=== PATIENT | female | born 1955 | race Caucasian/White ===

== ENCOUNTER 2016-10-18 17:13 | Emergency (ER) | payer SELFPAY ==
[~2016-10-18] VITALS: Ht 165.1 cm; Wt 61.2 kg
[~2016-10-18 17:13] MED LIST: AMOXIL500 MG PO; MOTRIN800 MG PO
[2016-10-18 17:21] VITALS: BP 127/92
[2016-10-18] MEDS ORDERED: TRAZADONE HYDR100 MG PO (17:22)
[2016-10-18 17:39] LABS: BASO % 0.5 % (0.0-1.0); EOS # 0.1 10*3/uL (0.0-0.4); EOS % 1.1 % (1.0-4.0); HEMATOCRIT 36.2 % (37.0-47.0); HEMOGLOBIN 11.8 g/dl (12.0-16.0); LYMPH % 35.4 % (27.0-41.0); MEAN CELL VOLUME 88.1 fl (81.0-99.0); MEAN CORPUSCULAR HGB 28.7 pg (27.0-31.0); MEAN CORPUSCULAR HGB CONC 32.6 g/dl (33.0-37.0); MEAN PLATELET VOLUME 10.5 fl (9.6-12.3); MONO # 0.6 10*3/uL (0.1-1.0); MONO % 7.3 % (3.0-9.0); NEUT # 4.7 10*3/uL (2.3-7.9); NEUT % 55.6 % (47.0-73.0); PLATELET COUNT AUTOMATED 244 10*3/uL (130-400); RED BLOOD COUNT 4.11 10*6/uL (4.10-5.10); RED CELL DISTRI WIDTH 13.5 % (0-14.5); WHITE BLOOD COUNT 8.5 10*3/uL (4.8-10.8)
[2016-10-18 17:50] LABS: PROTHROMBIN TIME 10.3 SECONDS (9.0-12.4)
[2016-10-18 17:56] LABS: ALBUMIN 3.9 gm/dl (3.1-4.5); ALKALINE PHOSPHATASE 92 U/L (45-117); BILIRUBIN, TOTAL 0.3 mg/dl (0.2-1.0); BUN 13 mg/dl (7-24); CARBON DIOXIDE 24 mmol/L (21-32); CHLORIDE 104 mmol/L (98-107); EST GLOM FILT AFRICAN AMERICAN > 60 ml/min; GLUCOSE 84 mg/dL (65-99); POTASSIUM 3.6 mmol/L (3.5-5.1); SGOT/AST 14 IU/L (3-35); SGPT/ALT 27 U/L (12-78); SODIUM 135 mmol/L (136-145)
[2016-10-18 18:00] LABS: TROPONIN I < 0.015 ng/ml (<0.045)
[2016-10-18 18:03] VITALS: BP 136/99
[2016-10-18 18:24] VITALS: BP 137/97
[2016-10-18 18:43] VITALS: BP 122/90
== END 2016-10-18 19:03 | disposition left against medical advice (07) ==
LOC: ED 17:13 → EDHOLD 18:28 → ED 19:03 → EDHOLD 19:04 → ED 19:04
PROVIDERS: Emergency Medicine
DX: R07.89 Other chest pain (principal); R06.02 Shortness of breath; H53.8 Other visual disturbances; R42 Dizziness and giddiness; J45.901 Unspecified asthma with (acute) exacerbation; Z88.8 Allergy status to other drugs, medicaments and biological substances

== ENCOUNTER 2017-01-02 17:30 | Inpatient (IN) | payer MEDICAID ==
[2017-01-02] VITALS (8 sets, daily range): BP systolic 121–144; BP diastolic 76–96
[~2017-01-02] VITALS: Ht 165.1 cm; Wt 61.4 kg
--- NOTE | ~2017-01-02 | CON ---
[place], [place] REPORT OF CONSULTATION NAME: SUMMER REBOLLEDO UNIT #: [id number] ROOM: 525 DOCTOR: ENIO DANGELO MD BIRTHDATE: [birth year] DOS: 01/05/2017 CHIEF COMPLAINT: "I am just so depressed and so anxious." HISTORY OF PRESENT ILLNESS: This is a 61-year-old white female with a past history of breast cancer and fibromyalgia, presenting to [facility] with chest pain and shortness of breath. From a psychiatric standpoint, the patient endorses significant depression that is ongoing, made worse by her father's recent . The patient also reports having significant anxiety issues that is somewhat related to her chest pain and shortness of breath, but also tends to describe herself as a worrier that worries about everything that is happening around her. The patient has significant fibromyalgia. She rates her pain on a scale of 1-10 as a 10 with 10 being the worst pain ever. She endorses poor sleep with difficulty falling asleep, sleep continuity disturbance, hand grinder awakening, anergia, anhedonia, hopeless, helpless feelings, crying spells and inability to cope. She does not have a history of seeing a counselor in the past nor has she seen a psychiatrist. PAST MEDICAL HISTORY: Remarkable for SIRS, tachycardia, acute respiratory failure, history of fibromyalgia and breast cancer. MENTAL STATUS: The patient is alert and oriented to person, place and time. Mood is overwhelmingly depressed. Affect is flat and blunted with constricted range. She endorses both depression and anxiety. There is no hypomania or arnaldo. There are no overt auditory or visual hallucinations. No delusions, no paranoia. Memory for short, intermediate and long-term events is fully intact. DIAGNOSIS: Major depression, recurrent and anxiety disorder, not otherwise specified. PLAN: The patient reports having already tried Cymbalta and Neurontin for the fibromyalgia and for the depression, neither of which worked. I will go ahead and start her on Elavil 50 mg at bedtime while maintaining her trazodone 400 mg at bedtime. Ultimately, the patient should follow up in the office post-discharge. Should she have further continued problems, feel free to reconsult me and I will reevaluate her later. ENIO DANGELO MD CM:CONSTR:REPORT OF CONSULTATION 6 01/05/17 [id number] interface
[~2017-01-02 17:30] MED LIST changes: +TRAZADONE HYDR100 MG PO
[2017-01-02 17:52] LABS: BASO % 0.3 % (0.0-1.0); EOS # 0.1 10*3/uL (0.0-0.4); EOS % 0.4 % (1.0-4.0); HEMOGLOBIN 11.8 g/dl (12.0-16.0); LYMPH # 2.4 10*3/uL (1.3-4.4); LYMPH % 20.3 % (27.0-41.0); MEAN CELL VOLUME 83.3 fl (81.0-99.0); MEAN CORPUSCULAR HGB 28.1 pg (27.0-31.0); MEAN CORPUSCULAR HGB CONC 33.7 g/dl (33.0-37.0); MEAN PLATELET VOLUME 10.4 fl (9.6-12.3); MONO # 0.8 10*3/uL (0.1-1.0); MONO % 6.4 % (3.0-9.0); NEUT # 8.6 10*3/uL (2.3-7.9); NEUT % 72.3 % (47.0-73.0); PLATELET COUNT AUTOMATED 222 10*3/uL (130-400); RED CELL DISTRI WIDTH 13.5 % (0-14.5); WHITE BLOOD COUNT 11.9 10*3/uL (4.8-10.8)
[2017-01-02 18:02] LABS: PROTHROMBIN TIME 10.4 SECONDS (9.0-12.4)
[2017-01-02 18:08] LABS: ALBUMIN 3.8 gm/dl (3.1-4.5); ALKALINE PHOSPHATASE 98 U/L (45-117); BILIRUBIN, TOTAL 0.4 mg/dl (0.2-1.0); BUN 17 mg/dl (7-24); CARBON DIOXIDE 15 mmol/L (21-32); CHLORIDE 108 mmol/L (98-107); EST GLOM FILT AFRICAN AMERICAN > 60 ml/min; GLUCOSE 119 mg/dL (65-99); MAGNESIUM 1.8 mg/dL (1.5-2.1); POTASSIUM 3.2 mmol/L (3.5-5.1); SGOT/AST 13 IU/L (3-35); SGPT/ALT 25 U/L (12-78); SODIUM 139 mmol/L (136-145); TOTAL PROTEIN 7.7 gm/dL (6.4-8.2)
[2017-01-02 18:09] LABS: TROPONIN I < 0.015 ng/ml (<0.045)
[2017-01-02 21:48] LABS: BILIRUBIN NEGATIVE (NEGATIVE); BLOOD NEGATIVE (NEGATIVE); CLARITY CLEAR (CLEAR); COLOR YELLOW (YELLOW); GLUCOSE NEGATIVE (NEGATIVE); KETONE 2+ (NEGATIVE); LEUKO ESTERASE NEGATIVE (NEGATIVE); NITRITE NEGATIVE (NEGATIVE); PROTEIN NEGATIVE (NEGATIVE); UROBILINOGEN 0.2 E.U./dl (0.2-1.0)
[2017-01-02 21:56] LABS: BACTERIA 2+; RBC 0-2 rbc/hpf (0-2); URINE REFLEX COMMENT YES (NO)
[2017-01-03] VITALS: BP 99/55
[2017-01-03 06:08] LABS: MONO % 5.4 % (3.0-9.0); RED CELL DISTRI WIDTH 14.1 % (0-14.5)
[2017-01-03 06:15] LABS: PROTHROMBIN TIME 10.7 SECONDS (9.0-12.4)
[2017-01-03 06:22] LABS: HEMOGLOBIN A1c 5.9 % (4.8-5.6)
[2017-01-03 06:31] LABS: BASO % 0.4 % (0.0-1.0); EOS # 0.1 10*3/uL (0.0-0.4); EOS % 0.8 % (1.0-4.0); HEMATOCRIT 30.6 % (37.0-47.0); HEMOGLOBIN 9.8 g/dl (12.0-16.0); LYMPH # 1.8 10*3/uL (1.3-4.4); LYMPH % 20.2 % (27.0-41.0); MEAN CORPUSCULAR HGB 28.7 pg (27.0-31.0); MONO # 0.5 10*3/uL (0.1-1.0); NEUT # 6.6 10*3/uL (2.3-7.9); PLATELET COUNT AUTOMATED 192 10*3/uL (130-400); RED BLOOD COUNT 3.41 10*6/uL (4.10-5.10)
[2017-01-03 06:34] LABS: MEAN CELL VOLUME 89.7 fl (81.0-99.0)
[2017-01-03 06:41] LABS: BUN 9 mg/dl (7-24); CARBON DIOXIDE 20 mmol/L (21-32); CHLORIDE 111 mmol/L (98-107); CHOLESTEROL 130 mg/dL (<200); EST GLOM FILT AFRICAN AMERICAN > 60 ml/min; FREE T4 1.18 ng/dl (0.76-1.46); GLUCOSE 125 mg/dL (65-99); HDL CHOLESTEROL 54 mg/dl (40-60); LDL CHOLESTEROL 63 mg/dL (9-159); MAGNESIUM 1.9 mg/dL (1.5-2.1); PHOSPHOROUS 3.7 mg/dL (2.5-4.9); SODIUM 140 mmol/L (136-145); TRIGLYCERIDES 64 mg/dl (<150); VLDL CHOLESTEROL 13 mg/dL (6-40)
[2017-01-03 06:55] LABS: POTASSIUM 4.2 mmol/L (3.5-5.1)
[2017-01-03 07:12] LABS: VITAMIN D, 25-HYDROXY 39.2 ng/mL (30-100)
[2017-01-03 07:13] LABS: FOLIC ACID 12.34 ng/mL (>5.38)
[2017-01-03 08:00] VITALS: BP 98/50
[2017-01-03 12:00] VITALS: BP 99/59
[2017-01-03 16:00] VITALS: BP 120/79
[2017-01-03 17:56] LABS: URINE AMPHETAMINES < 1000 (1000ng/ml); URINE BARBITURATES < 200 (200ng/ml); URINE COCAINE < 300 (300ng/ml)
[2017-01-03 20:00] VITALS: BP 125/77
[2017-01-04] VITALS: BP 99/59
[2017-01-04 07:27] LABS: BASO % 0.6 % (0.0-1.0); EOS # 0.2 10*3/uL (0.0-0.4); EOS % 4.6 % (1.0-4.0); HEMATOCRIT 33.7 % (37.0-47.0); HEMOGLOBIN 10.5 g/dl (12.0-16.0); LYMPH # 1.5 10*3/uL (1.3-4.4); LYMPH % 31.7 % (27.0-41.0); MEAN CELL VOLUME 91.8 fl (81.0-99.0); MEAN CORPUSCULAR HGB 28.6 pg (27.0-31.0); MEAN CORPUSCULAR HGB CONC 31.2 g/dl (33.0-37.0); MEAN PLATELET VOLUME 11.1 fl (9.6-12.3); MONO # 0.4 10*3/uL (0.1-1.0); MONO % 7.9 % (3.0-9.0); NEUT # 2.7 10*3/uL (2.3-7.9); PLATELET COUNT AUTOMATED 169 10*3/uL (130-400); RED BLOOD COUNT 3.67 10*6/uL (4.10-5.10); RED CELL DISTRI WIDTH 14.3 % (0-14.5); WHITE BLOOD COUNT 4.8 10*3/uL (4.8-10.8)
[2017-01-04 07:57] LABS: ALBUMIN 3.2 gm/dl (3.1-4.5); BILIRUBIN, TOTAL 0.3 mg/dl (0.2-1.0); BUN 8 mg/dl (7-24); CARBON DIOXIDE 23 mmol/L (21-32); CHLORIDE 112 mmol/L (98-107); EST GLOM FILT AFRICAN AMERICAN > 60 ml/min; GLUCOSE 87 mg/dL (65-99); POTASSIUM 3.9 mmol/L (3.5-5.1); SGOT/AST 17 IU/L (3-35); SGPT/ALT 20 U/L (12-78); SODIUM 144 mmol/L (136-145)
[2017-01-04 07:58] LABS: ALKALINE PHOSPHATASE 78 U/L (45-117)
[2017-01-04 08:00] VITALS: BP 92/71
[2017-01-04 16:00] VITALS: BP 135/80
[2017-01-04 20:00] VITALS: BP 130/75
[2017-01-05] VITALS: BP 135/75
[2017-01-05 06:52] LABS: BASO % 0.3 % (0.0-1.0); EOS # 0.2 10*3/uL (0.0-0.4); EOS % 3.3 % (1.0-4.0); HEMATOCRIT 30.6 % (37.0-47.0); HEMOGLOBIN 9.3 g/dl (12.0-16.0); LYMPH # 1.7 10*3/uL (1.3-4.4); LYMPH % 29.4 % (27.0-41.0); MEAN CELL VOLUME 92.7 fl (81.0-99.0); MEAN CORPUSCULAR HGB 28.2 pg (27.0-31.0); MEAN CORPUSCULAR HGB CONC 30.4 g/dl (33.0-37.0); MEAN PLATELET VOLUME 10.6 fl (9.6-12.3); MONO # 0.6 10*3/uL (0.1-1.0); MONO % 9.5 % (3.0-9.0); NEUT # 3.3 10*3/uL (2.3-7.9); NEUT % 57.3 % (47.0-73.0); PLATELET COUNT AUTOMATED 171 10*3/uL (130-400); RED CELL DISTRI WIDTH 14.1 % (0-14.5); WHITE BLOOD COUNT 5.8 10*3/uL (4.8-10.8)
[2017-01-05 07:28] LABS: ALBUMIN 2.7 gm/dl (3.1-4.5); BILIRUBIN, TOTAL 0.2 mg/dl (0.2-1.0); BUN 12 mg/dl (7-24); CARBON DIOXIDE 24 mmol/L (21-32); CHLORIDE 113 mmol/L (98-107); EST GLOM FILT AFRICAN AMERICAN > 60 ml/min; GLUCOSE 98 mg/dL (65-99); SGOT/AST 15 IU/L (3-35); SGPT/ALT 18 U/L (12-78); SODIUM 143 mmol/L (136-145)
[2017-01-05 07:29] LABS: ALKALINE PHOSPHATASE 66 U/L (45-117)
[2017-01-05 08:00] VITALS: BP 124/78
[2017-01-05 12:00] VITALS: BP 136/96
[2017-01-05 16:00] VITALS: BP 129/78
[2017-01-05 20:00] VITALS: BP 108/68
[2017-01-06] VITALS: BP 117/82
[2017-01-06 08:00] VITALS: BP 128/89
[2017-01-06 12:00] VITALS: BP 103/66
[2017-01-06] MEDS ORDERED: AMITRIPTYLINE50 MG PO (12:31)
== END 2017-01-06 13:23 | disposition home or self-care (01) | DRG 871 ==
LOC: ED 17:30 → 5E 21:52 → EDHOLD 21:52 → 5E 22:04
PROVIDERS: Emergency Medicine; Family Medicine; Hospitalist; Physician Assistant
PROC: 4A12XM4 Monitoring of Cardiac Stress, External Approach (ICD-10-PCS; principal; 2017-01-04)
PROC: 3E073KZ Introduction of Other Diagnostic Substance into Coronary Artery, Percutaneous Approach (ICD-10-PCS; 2017-01-04)
DX: A41.9 Sepsis, unspecified organism (principal); J96.00 Acute respiratory failure, unspecified whether with hypoxia or hypercapnia; E43 Unspecified severe protein-calorie malnutrition; F33.9 Major depressive disorder, recurrent, unspecified; E87.6 Hypokalemia; M79.7 Fibromyalgia; R73.9 Hyperglycemia, unspecified; R82.4 Acetonuria; E83.51 Hypocalcemia; K59.00 Constipation, unspecified; F41.9 Anxiety disorder, unspecified; D64.9 Anemia, unspecified; Z79.899 Other long term (current) drug therapy; Z83.3 Family history of diabetes mellitus; Z90.10 Acquired absence of unspecified breast and nipple; Z85.3 Personal history of malignant neoplasm of breast; Z92.21 Personal history of antineoplastic chemotherapy; Z92.3 Personal history of irradiation; Z80.1 Family history of malignant neoplasm of trachea, bronchus and lung; Z82.49 Family history of ischemic heart disease and other diseases of the circulatory system; Z68.22 Body mass index [BMI] 22.0-22.9, adult

== ENCOUNTER → 2017-02-05 | Outpatient (CLI) | payer OTHER ==
[~2017-02-05] MED LIST changes: +AMITRIPTYLINE50 MG PO
== END | disposition home or self-care (01) ==
LOC: MRI 11:00
DX: H53.8 Other visual disturbances (principal); H57.02 Anisocoria; R42 Dizziness and giddiness; R29.6 Repeated falls; R41.3 Other amnesia; Z85.3 Personal history of malignant neoplasm of breast

== ENCOUNTER → 2017-03-01 | Outpatient (CLI) | payer OTHER ==
[2017-03-01 09:17] LABS: CREATININE 0.95 mg/dL (0.55-1.02)
== END | disposition home or self-care (01) ==
LOC: MRI 02-27 11:00 → CT 02-27 11:00 → MRI 08:31 → LAB 08:31 → MRI 09:00
PROVIDERS: Radiology Diagnostic Radiology
DX: M47.892 Other spondylosis, cervical region (principal); R22.9 Localized swelling, mass and lump, unspecified; R51 Headache; M54.2 Cervicalgia; R29.6 Repeated falls

== ENCOUNTER → 2017-03-16 | Outpatient (CLI) | payer OTHER ==
[2017-03-16 16:38] LABS: HEMATOCRIT 40.4 % (37.0-47.0); MEAN CELL VOLUME 89.4 fl (81.0-99.0); MEAN CORPUSCULAR HGB 28.8 pg (27.0-31.0); MEAN CORPUSCULAR HGB CONC 32.2 g/dl (33.0-37.0); MEAN PLATELET VOLUME 10.3 fl (9.6-12.3); RED BLOOD COUNT 4.52 10*6/uL (4.10-5.10); WHITE BLOOD COUNT 9.4 10*3/uL (4.8-10.8)
[2017-03-16 16:58] LABS: CREATININE 1.24 mg/dL (0.55-1.02); POTASSIUM 3.9 mmol/L (3.5-5.1); TOTAL PROTEIN 8.2 gm/dL (6.4-8.2)
[2017-03-16 17:05] LABS: THYROID STIM HORMONE (HS) 1.18 uIU/ml (0.358-4.75)
[2017-03-16 17:56] LABS: FERRITIN 22.5 ng/mL (10.0-291.0)
[2017-03-19 16:12] LABS: STRIATIONAL ANTIBODIES 160184 Negative (Neg:<1:40)
[2017-03-20 18:05] LABS: ACHR-BINDING AB 085902 0.04 nmol/L (0.00-0.24)
[2017-03-21 11:04] LABS: ACHR MODULATING AB 085933 <12 % (0-20)
[2017-03-22 12:08] LABS: ACHR BLOCKING AB 085926 14 % (0-25)
== END | disposition home or self-care (01) ==
LOC: LAB 15:58 → US 16:00
DX: N13.30 Unspecified hydronephrosis (principal); N32.89 Other specified disorders of bladder; R41.3 Other amnesia; R53.1 Weakness; F80.81 Childhood onset fluency disorder; H53.8 Other visual disturbances

== ENCOUNTER → 2017-05-31 | Outpatient (CLI) | payer OTHER | END | disposition home or self-care (01) | LOC: CP 11:44 | DX: R29.6 Repeated falls (principal); F80.81 Childhood onset fluency disorder; H53.8 Other visual disturbances; G44.209 Tension-type headache, unspecified, not intractable; D18.1 Lymphangioma, any site ==

== ENCOUNTER → 2017-06-26 | Outpatient (CLI) | payer OTHER ==
[2017-06-26 13:14] LABS: CREATININE 0.83 mg/dL (0.55-1.02)
[2017-06-26 13:19] LABS: BUN 16 mg/dl (7-24); CPK 58 U/L (26-192)
[2017-06-28 16:11] LABS: ACHR-BINDING AB 085902 0.19 nmol/L (0.00-0.24)
== END | disposition home or self-care (01) ==
LOC: LAB 12:32 → MRI 13:00
PROVIDERS: Psychiatry & Neurology Neurology; Radiology Diagnostic Radiology
DX: Z13.89 Encounter for screening for other disorder (principal); R29.6 Repeated falls; R53.1 Weakness; F80.81 Childhood onset fluency disorder; H53.8 Other visual disturbances; H53.2 Diplopia; D18.1 Lymphangioma, any site; G44.89 Other headache syndrome; E87.8 Other disorders of electrolyte and fluid balance, not elsewhere classified; Z85.3 Personal history of malignant neoplasm of breast

== ENCOUNTER 2019-07-31 18:59 | Emergency (ER) | payer OTHER ==
[~2019-07-31] VITALS: Ht 165.1 cm; Wt 56.7 kg
[2019-07-31 19:10] VITALS: BP 153/85
[2019-07-31] MEDS ORDERED: PROAIR HFA8.5 GM INH (20:03)
[2019-07-31] MEDS ORDERED: PREDNISONE50 MG PO (20:03)
[2019-07-31] MEDS ORDERED: AMOXICILLIN500 M2 PO (20:03)
== END 2019-07-31 20:15 | disposition home or self-care (01) ==
LOC: ED 18:59
DX: J20.9 Acute bronchitis, unspecified (principal); J45.909 Unspecified asthma, uncomplicated; M79.7 Fibromyalgia

== ENCOUNTER 2020-05-14 14:02 | Emergency (ER) | payer OTHER ==
[~2020-05-14] VITALS: Ht 162.5 cm; Wt 61.2 kg
[~2020-05-14 14:02] MED LIST changes: +AMOXICILLIN500 M2 PO; +PREDNISONE50 MG PO; +PROAIR HFA8.5 GM INH
[2020-05-14 14:05] VITALS: BP 136/58
[2020-05-14 14:21] LABS: BASO % 0.6 % (0.0-1.0); EOS # 0.4 10*3/uL (0.0-0.4); EOS % 5.9 % (1.0-4.0); HEMATOCRIT 38.8 % (37.0-47.0); LYMPH % 30.3 % (27.0-41.0); MEAN CELL VOLUME 90.2 fl (81.0-99.0); MEAN CORPUSCULAR HGB 28.1 pg (27.0-31.0); MEAN CORPUSCULAR HGB CONC 31.2 g/dl (33.0-37.0); MEAN PLATELET VOLUME 10.6 fl (9.6-12.3); MONO # 0.6 10*3/uL (0.1-1.0); MONO % 8.8 % (3.0-9.0); NEUT # 3.5 10*3/uL (2.3-7.9); NEUT % 54.1 % (47.0-73.0); PLATELET COUNT AUTOMATED 239 10*3/uL (130-400); RED CELL DISTRI WIDTH 13.2 % (0-14.5); WHITE BLOOD COUNT 6.5 10*3/uL (4.8-10.8)
[2020-05-14 14:33] LABS: ACT PARTIAL THROMBO TIME 25.4 SECONDS (20.0-32.1); INTERNATIONAL NORM RATIO 0.9 (2.0-3.5)
[2020-05-14 14:37] LABS: ALBUMIN 3.6 gm/dl (3.1-4.5); ALKALINE PHOSPHATASE 114 U/L (45-117); BUN 12 mg/dl (7-24); CHLORIDE 109 mmol/L (98-107); CREATININE 0.69 mg/dL (0.55-1.02); POTASSIUM 3.5 mmol/L (3.5-5.1); SGOT/AST 28 IU/L (3-35); SGPT/ALT 47 U/L (12-78); SODIUM 142 mmol/L (136-145); TOTAL PROTEIN 7.7 gm/dL (6.4-8.2); TROPONIN I < 0.015 ng/ml (<0.045)
== END 2020-05-14 16:58 | disposition home or self-care (01) ==
LOC: ED 14:02
PROVIDERS: Emergency Medicine
DX: R00.2 Palpitations (principal); Z79.899 Other long term (current) drug therapy

== ENCOUNTER → 2022-02-23 | Day surgery (SDC) | payer OTHER ==
[~2022-02-23] VITALS: Ht 162.5 cm; Wt 61.2 kg
[~2022-02-23] MED LIST changes: +PERCOCET 5-3251 EACH PO; -TRAZADONE HYDR100 MG PO; +TRAZODONE HYDR300 MG PO
[2022-02-23 08:27] VITALS: BP 118/82
[2022-02-23 09:34] VITALS: BP 129/87
[2022-02-23 09:49] VITALS: BP 112/61
[2022-02-23 10:00] VITALS: BP 118/71
[2022-02-23 10:19] VITALS: BP 111/66
[2022-02-23 10:34] VITALS: BP 119/67
== END | disposition home or self-care (01) ==
LOC: SDC 02-21 12:30
PROVIDERS: ATTEND Surgery
DX: Z12.11 Encounter for screening for malignant neoplasm of colon (principal); T82.594A Other mechanical complication of infusion catheter, initial encounter; J45.909 Unspecified asthma, uncomplicated; F32.9 Major depressive disorder, single episode, unspecified; F41.9 Anxiety disorder, unspecified; M79.7 Fibromyalgia; I48.91 Unspecified atrial fibrillation; Z85.3 Personal history of malignant neoplasm of breast; Y82.8 Other medical devices associated with adverse incidents; G43.909 Migraine, unspecified, not intractable, without status migrainosus; Z98.890 Other specified postprocedural states

== ENCOUNTER → 2022-03-30 | Outpatient (CLI) | payer OTHER | END | disposition home or self-care (01) | LOC: CT 07:47 | PROVIDERS: ATTEND Physician Assistant | DX: R91.8 Other nonspecific abnormal finding of lung field (principal) ==

== ENCOUNTER → 2022-04-12 | Outpatient (CLI) | payer OTHER | LOC: LAB 11:04 | PROVIDERS: ATTEND Internal Medicine | DX: R07.9 Chest pain, unspecified (principal) ==

== ENCOUNTER 2023-05-09 22:12 | Emergency (ER) | payer OTHER ==
[2023-05-09 22:37] LABS: BASO % 0.3 % (0.0-1.0); EOS # 0.1 10*3/uL (0.0-0.4); EOS % 0.9 % (1.0-4.0); HEMATOCRIT 34.4 % (37.0-47.0); LYMPH # 1.7 10*3/uL (1.3-4.4); MEAN CELL VOLUME 90.1 fl (81.0-99.0); MEAN CORPUSCULAR HGB 30.1 pg (27.0-31.0); MEAN CORPUSCULAR HGB CONC 33.4 g/dl (33.0-37.0); MEAN PLATELET VOLUME 10.7 fl (9.6-12.3); MONO # 0.5 10*3/uL (0.1-1.0); MONO % 8.1 % (3.0-9.0); NEUT # 4.3 10*3/uL (2.3-7.9); NEUT % 65.4 % (47.0-73.0); PLATELET COUNT AUTOMATED 167 10*3/uL (130-400); RED BLOOD COUNT 3.82 10*6/uL (4.10-5.10); RED CELL DISTRI WIDTH 13.5 % (0-14.5); WHITE BLOOD COUNT 6.6 10*3/uL (4.8-10.8)
[2023-05-09 23:05] LABS: ALKALINE PHOSPHATASE 71 U/L (46-116); BUN 13 mg/dl (9-23); CHLORIDE 108 mmol/L (98-107); ETHYL ALCOHOL 162.9 mg/dl (<3); POTASSIUM 2.8 mmol/L (3.4-5.1); SGPT/ALT 18 U/L (5-49); TOTAL PROTEIN 6.4 gm/dL (6.0-8.0)
[2023-05-10 06:03] LABS: BASO % 0.4 % (0.0-1.0); EOS % 0.6 % (1.0-4.0); HEMATOCRIT 33.5 % (37.0-47.0); LYMPH % 19.9 % (27.0-41.0); MEAN CELL VOLUME 91.3 fl (81.0-99.0); MEAN CORPUSCULAR HGB 29.7 pg (27.0-31.0); MEAN CORPUSCULAR HGB CONC 32.5 g/dl (33.0-37.0); MEAN PLATELET VOLUME 10.7 fl (9.6-12.3); MONO # 0.3 10*3/uL (0.1-1.0); NEUT # 3.6 10*3/uL (2.3-7.9); NEUT % 72.7 % (47.0-73.0); PLATELET COUNT AUTOMATED 151 10*3/uL (130-400); RED BLOOD COUNT 3.67 10*6/uL (4.10-5.10); RED CELL DISTRI WIDTH 13.5 % (0-14.5)
[2023-05-10 06:16] LABS: BILIRUBIN Negative (Negative); BLOOD Negative (Negative); CLARITY Clear (Clear); COLOR Yellow (Yellow); GLUCOSE Negative (Negative); KETONE 1+ (Negative); LEUKO ESTERASE 2+ (Negative); NITRITE Negative (Negative); PH 6.5 (4.5-8.0); UROBILINOGEN 0.2 E.U./dl (0.0-1.0)
[2023-05-10 06:22] LABS: URINE AMPHETAMINES Negative (1000ng/ml); URINE BARBITURATES Negative (200ng/ml); URINE BENZODIAZEPINES Negative (200ng/ml); URINE CANNABINOIDS (THC) Negative (50ng/ml); URINE COCAINE Negative (300ng/ml); URINE METHADONE Negative (300ng/ml); URINE OPIATES Negative (300ng/ml); URINE PHENCYCLIDINE Negative (25ng/ml)
[2023-05-10 06:25] LABS: BUN 8 mg/dl (9-23); CHLORIDE 109 mmol/L (98-107); ETHYL ALCOHOL 6.9 mg/dl (<3); POTASSIUM 3.2 mmol/L (3.4-5.1)
[2023-05-10 06:39] LABS: BACTERIA 2+; WBC 31-40 wbc/hpf (0-5)
[2023-05-10 14:27] VITALS: BP 108/62
[2023-05-10 14:44] LABS: CHLORIDE 111 mmol/L (98-107)
[2023-05-10 14:46] LABS: BUN < 5 mg/dl (9-23); POTASSIUM 4.2 mmol/L (3.4-5.1)
== END 2023-05-10 17:44 ==
LOC: ED 22:12
PROVIDERS: Internal Medicine
DX: T43.212A Poisoning by selective serotonin and norepinephrine reuptake inhibitors, intentional self-harm, initial encounter (principal); Z20.822 Contact with and (suspected) exposure to COVID-19; F43.21 Adjustment disorder with depressed mood; R11.10 Vomiting, unspecified; F10.920 Alcohol use, unspecified with intoxication, uncomplicated; E87.6 Hypokalemia; D64.9 Anemia, unspecified; Z79.899 Other long term (current) drug therapy; Y92.89 Other specified places as the place of occurrence of the external cause

== ENCOUNTER 2024-12-10 12:41 | Emergency (ER) | payer OTHER ==
[~2024-12-10] VITALS: Ht 162.5 cm; Wt 56.7 kg
[2024-12-10 12:56] VITALS: BP 101/59
[2024-12-10 13:01] LABS: BASO % 0.3 % (0.0-1.0); EOS # 0.1 10*3/uL (0.0-0.4); EOS % 0.4 % (1.0-4.0); HEMATOCRIT 30.5 % (37.0-47.0); MEAN CELL VOLUME 88.9 fl (81.0-99.0); MEAN CORPUSCULAR HGB 28.3 pg (27.0-31.0); MEAN CORPUSCULAR HGB CONC 31.8 g/dl (33.0-37.0); MEAN PLATELET VOLUME 9.6 fl (9.6-12.3); MONO # 0.5 10*3/uL (0.1-1.0); MONO % 4.6 % (3.0-9.0); NEUT # 7.9 10*3/uL (2.3-7.9); NEUT % 69.2 % (47.0-73.0); PLATELET COUNT AUTOMATED 358 10*3/uL (130-400); RED BLOOD COUNT 3.43 10*6/uL (4.10-5.10); RED CELL DISTRI WIDTH 14.6 % (0-14.5); WHITE BLOOD COUNT 11.4 10*3/uL (4.8-10.8)
[2024-12-10 13:23] LABS: BUN 10 mg/dl (9-23); CHLORIDE 103 mmol/L (98-107); POTASSIUM 2.6 mmol/L (3.4-5.1)
[2024-12-10] MEDS ORDERED: POTASSIUM CHLORIDE 20 MEQ TAB PO ONE (14:05)
[2024-12-10] MEDS ORDERED: MAGNESIUM SULFATE 50 ML IV ONE (14:05)
== END 2024-12-10 18:21 | disposition left against medical advice (07) ==
LOC: ED 12:41
PROVIDERS: Nurse Practitioner Family
DX: E87.6 Hypokalemia (principal); J45.901 Unspecified asthma with (acute) exacerbation; M79.7 Fibromyalgia; Z85.3 Personal history of malignant neoplasm of breast; Z79.899 Other long term (current) drug therapy; Z98.890 Other specified postprocedural states; Z53.29 Procedure and treatment not carried out because of patient's decision for other reasons

== ENCOUNTER 2025-01-09 04:11 | Emergency (ER) | payer OTHER ==
[~2025-01-09] VITALS: Ht 162.5 cm; Wt 56.7 kg
[2025-01-09] MEDS ORDERED: FLUOXETINE HCL10 MG PO (04:24)
[2025-01-09] MEDS ORDERED: FLUOXETINE HYDR20 M1 PO (04:24)
[2025-01-09] MEDS ORDERED: CLONIDINE HCL0.2 MG PO (04:24)
[2025-01-09] MEDS ORDERED: Acetaminophen/Hydrocodone 5 MG/325 MG TABLET PO ONE (04:55)
[2025-01-09 05:33] LABS: BUN 11 mg/dl (9-23)
[2025-01-09 05:56] LABS: BASO # 0.1 10*3/uL (0.0-0.1); BASO % 0.5 % (0.0-1.0); EOS # 0.1 10*3/uL (0.0-0.4); EOS % 1.2 % (1.0-4.0); MEAN CELL VOLUME 90.3 fl (81.0-99.0); MEAN CORPUSCULAR HGB 28.7 pg (27.0-31.0); MEAN PLATELET VOLUME 9.9 fl (9.6-12.3); MONO # 0.7 10*3/uL (0.1-1.0); MONO % 6.2 % (3.0-9.0); NEUT # 8.6 10*3/uL (2.3-7.9); NEUT % 78.7 % (47.0-73.0); NUCLEATED RED BLOOD CELL 0.0 % (0.0-0.0); NUCLEATED RED BLOOD CELL 0.0 10*3/uL (0.0-0.0); PLATELET COUNT AUTOMATED 340 10*3/uL (130-400); RED CELL DISTRI WIDTH 15.9 % (0-14.5)
[2025-01-09 07:14] VITALS: BP 151/86
[2025-01-09] MEDS ORDERED: MELOXICAM15 MG PO (10:13)
[2025-01-09] MEDS ORDERED: AMOX-CLAV 875-1 EACH PO (10:13)
== END 2025-01-09 10:19 | disposition home or self-care (01) ==
LOC: ED 04:11
PROVIDERS: Emergency Medicine
DX: N60.41 Mammary duct ectasia of right breast (principal); F41.9 Anxiety disorder, unspecified; F10.90 Alcohol use, unspecified, uncomplicated; Z98.890 Other specified postprocedural states; Y90.9 Presence of alcohol in blood, level not specified

== ENCOUNTER → 2025-02-03 | Outpatient (CLI) | payer OTHER ==
[~2025-02-03] MED LIST changes: +AMOX-CLAV 875-1 EACH PO; +CLONIDINE HCL0.2 MG PO; +FLUOXETINE HCL10 MG PO; +FLUOXETINE HYDR20 M1 PO; +MELOXICAM15 MG PO
== END ==
LOC: MAMMO 03:23 → US 14:00
PROVIDERS: ATTEND Nurse Practitioner Family
DX: R92.0 Mammographic microcalcification found on diagnostic imaging of breast (principal); R92.30 Dense breasts, unspecified

== ENCOUNTER → 2025-03-11 | Outpatient (CLI) | payer OTHER ==
[2025-03-11 18:26] LABS: BASO # 0.1 10*3/uL (0.0-0.1); BASO % 1.1 % (0.0-1.0); EOS # 0.5 10*3/uL (0.0-0.4); EOS % 8.8 % (1.0-4.0); MEAN CELL VOLUME 94.7 fl (81.0-99.0); MEAN CORPUSCULAR HGB 28.5 pg (27.0-31.0); MEAN PLATELET VOLUME 11.3 fl (9.6-12.3); MONO # 0.6 10*3/uL (0.1-1.0); MONO % 10.2 % (3.0-9.0); NEUT # 2.2 10*3/uL (2.3-7.9); NEUT % 37.8 % (47.0-73.0); NUCLEATED RED BLOOD CELL 0.0 % (0.0-0.0); NUCLEATED RED BLOOD CELL 0.0 10*3/uL (0.0-0.0); PLATELET COUNT AUTOMATED 233 10*3/uL (130-400); RED CELL DISTRI WIDTH 14.4 % (0-14.5)
[2025-03-11 18:37] LABS: BUN 17 mg/dl (9-23); LDL CHOLESTEROL 97 mg/dL (9-159); SGPT/ALT 23 U/L (5-49)
== END | disposition home or self-care (01) ==
LOC: LAB 14:19
PROVIDERS: ATTEND Nurse Practitioner Family
DX: J45.20 Mild intermittent asthma, uncomplicated (principal); R91.1 Solitary pulmonary nodule; N64.4 Mastodynia; Z13.29 Encounter for screening for other suspected endocrine disorder; Z13.220 Encounter for screening for lipoid disorders; Z85.3 Personal history of malignant neoplasm of breast; Z76.89 Persons encountering health services in other specified circumstances